=== PATIENT | male | born 1965 | race Caucasian/White ===

== ENCOUNTER 2017-02-20 09:10 | Emergency (ER) | payer BC ==
[2017-02-20 09:19] VITALS: BP 130/84; BMI 34.2
[2017-02-20] MEDS ORDERED: HYDROGEN PEROXIDE 3% ONE (10:07)
[2017-02-20] MEDS ORDERED: ADACEL TDaP IM ONE ×2 (10:13→10:21)
--- NOTE | 2017-02-20 10:37 | DR.GENAD ---
HPI - PCP Primary Care Physician: HUI MOSES - HPI Comment HPI Comment: HISTORY BELOW. - Complaint/Symptoms Chief Complaint Doctors Comments: PUNCTURE WOUND AND FB/ METAL IN LEFT LEG. HAPPEN TODAY BEFORE COMING. TD UTD. Chief Complaint:: PT C/O WORKING AND HAVING METAL FLY OUT AND HIT HIS LEFT LEG AND PT WANTS TO MAKE SURE THERE IS NO METAL IN HIS LEG.. - Nurses notes reviewed Nurses Notes Review: Yes - Source History Provided: Patient - Mode of Arrival Mode of Arrival: Ambulatory - Timing Onset of Chief Complaint: 02/20/17 Came on: Suddenly - Duration Duration: Constant Duration: Hours - Severity Severity: Moderate PMH - PMH Past Medical History: Yes Past Medical History: Hypertension Past Medical History Comment: INCREASED CHOLESTEROL .. Past Surgical History: No - Family History History of Family Medical Conditions: Yes Family Medical History: Cancer Family Medical History Comment: HEART DISEASE .. - Social History Does patient currently use any type of tobacco product: Yes Have you used tobacco products in the last 12 months: Yes Type of Tobacco Use: Cigarettes How many years tobacco product used: 33 Does any household member use tobacco: No Alcohol Use: Occasionally Do you use any recreational Drugs:: No Lives With: Alone Lives Where: Home - infectious screening In the last 2 months have you had wt loss of >10#?: NO Have you had fever, night sweats or hemotysis?: No Have you traveled outside the country in the last 6 months?: No Isolation: Standard ROS - Review of Systems Constitutional: No Symptoms Reported Eyes: No Symptoms Reported ENTM: No Symptoms Reported Respiratoy: No Symptoms Reported Cardiovascular: No Symptoms Reported Gastrointestinal/Abdominal: No Symptoms Reported Genitourinary: No Symptoms Reported Neurological: No Symptoms Reported Musculoskeletal: Muscle Pain Integumentary: Wound (PUNCTURE WOUND LT LEG.), Other (FB/ METAL IN LT LEG.) Hematologic/Lymphatic: No Symptoms Reported Endocrine: No Symptoms Reported All Other Systems: Reviewed and Negative PE - Vital Signs Vitals: Temperature 98.8 F Pulse Rate 95 Respiratory Rate 18 Blood Pressure 130/84 O2 Sat by Pulse Oximetry 100 - General Limitations: No Limitations General Appearance: Alert - Head Head Exam: Normal Inspection - Eyes Eye exam: Normal Appearance - ENT ENT Exam: Normal External Ear Exam External Ear Exam: Normal External Inspection - Neck Neck Exam: Trachea Midline - Chest Chest Inspection: Symmetric Chest Wall Rise - Respiratory Respiratory Exam: Normal Lung Sounds Bilat Respiratory Exam: Bilateral Clear to Auscultation - Cardiovascular Cardiovascular Exam: Regular Rate, Normal Rhythm, Normal Heart Sounds - Abdominal Exam Abdominal Exam: Normal Inspection - Extremities Extremities Exam: Tenderness (LT LEG WITH PUNCTURE WOUND AND FB.) - Back Back Exam: Normal Inspection - Neurologic Neurological Exam: Alert, Oriented X3 - Psychiatric Psychiatric Exam: Normal Affect, Normal Mood - Skin Skin Exam: Erythema (PUNCTURE WOUND.) MDM - Differential Diagnosis Differential Diagnosis: PUNCTURE WOUND LT LEG, FB LEFT LEG. Course - Treatment Treatment: SEE ORDERS. ATTEMPT TO REMOVE FB IN ED BY DR WAS NOT SUCCESSFUL. ORTHO/DR. GARDNER ATTEMTED TO REMOVE FB UNDER FLUEROSCPY WITHOUT SUCCESS. SKIN CLOSE AND PATIENT REFER TO PCP FOR ORTHO REFERER. - Education/Counseling Education/Counseling: Patient, Education Educated On: Treatment, Diagnosis, Needs for Follow Up ROR - XRAY XRAY Interpreted by: Radiologist XRAY Findings: REPORT DISCUSS WITH PATIENT. Procedures - Laceration/Wound Repair Left Leg Wound Length (cm): 2 (SURGICAL INCISSURE DONE IN ED FOR FB EXPLORATION.) Wound's Depth, Shape: Linear Wound Explored: clean Irrigated w/ Saline (ccs): 50 Betadine Prep?: Yes Anesthesia: 1% Lidocaine Volume Anesthetic (ccs): 5 Wound Debrided: minimal Wound Repaired With: sutures Suture Size/Type: 4:0, Ethilion Number of Sutures: 7 Progress: 2CM SURGICAL SURE INTRODUCE EXTENSION OF PUNCTURE WOUND. FB WAS NOT NOT RECOVERED. DR. RIVERA, ORTHO DR SEARCH UNDER FLUERO WITHOUT SUCCESS. WOUND CLOSE WITH 4-0 ETHILON 7 STICHES. - Diagnosis Discharge Problem: Laceration of left leg, Foreign body of left lower leg - Discharge Plan Disposition: 01 HOME, SELF-CARE Condition: Stable Prescriptions: Cephalexin [KEFLEX CAP 500 MG *] 500 mg PO TID #21 cap Ibuprofen [MOTRIN TAB 800 MG *] 800 mg PO Q8H PRN #20 tab PRN Reason: Pain/Inflammation Tramadol HCl 50 mg PO TID #15 tablet - Follow ups/Referrals Follow ups/Referrals: NFD,None [Primary Care Provider] - 1 day - Instructions Instructions: Puncture Wound, [id number], Laceration Care, Adult, Easy-to- Read Additional Instructions: RETURN TO ED IF WORSE. YOU ALSO HAVE FOREIGN BODY IN RT LEG.
[2017-02-20] MEDS ORDERED: XYLOCAINE 1 % (PLAIN) ONE (10:47)
--- NOTE | 2017-02-20 12:45 | RAD ---
HISTORY: Possible metal in leg and recheck for foreign body. Study: Four views each of the left tibia/fibula dated different times on February 20, 2017. Comparison: None. Findings: Patient is status post ORIF of remote distal tibia and fibular fractures with plate and screw fixatio n. The visualized hardware appears intact. Degenerative and posttraumatic changes about the ankle. No acute fracture or dislocation. There is a 9 mm radiopaque density within the soft tissues adjacent t o the posterior medial left distal tibia. Remaining soft tissues are otherwise unremarkable. IMPRESSION: 1. 9 mm radiopaque foreign body within the soft tissues as above appears unchanged. 2. No acute osseous abnormality. Reported By:
[2017-02-20] MEDS ORDERED: ANCEF VIAL 1 GM IM ONE (14:12)
[2017-02-20] MEDS ORDERED: ANCEF VIAL 1 GM ONE (14:13)
[2017-02-20] MEDS ORDERED: BACITRACIN ZINC ONE (14:21)
== END 2017-02-20 15:16 | disposition home or self-care (01) ==
LOC: ER 09:22
PROC: 0YQJ0ZZ Repair Left Lower Leg, Open Approach (ICD-10-PCS; principal; 2017-02-20)
DX: S81.812A Laceration without foreign body, left lower leg, initial encounter (principal); W45.8XXA Other foreign body or object entering through skin, initial encounter; Y92.69 Other specified industrial and construction area as the place of occurrence of the external cause
CPT/HCPCS: 12001; 73590; 90471; 96372; 99282; J0690; J2001

== ENCOUNTER 2023-12-18 12:47 | Inpatient (IN) ==
--- NOTE | 2023-12-18 14:01 | DR.ABDMALE ---
HPI Time seen Time Seen by Provider: 12/18/23 13:50 PCP Primary Care Physician: Esvin Lockett Complaint Chief Complaint Doctors Comments: 58-year-old male presents for evaluation. Patient developed abdominal pain yesterday afternoon. Pain started after the patient got off his tractor, states he was on the "too long", in the heat. Pain started above the umbilical region, has been steady, is now across the entire abdomen. Pain worse with movement, palpation and bending. Nothing makes it better. Denies fever or chills. Has had decreased appetite today. Denies nausea, vomiting, diarrhea. Last moved his bowels yesterday. Urine is dark, but no dysuria. Denies lightheadedness or dizziness. Chief Complaint:: Pt states that he has been having abd pain since yesterday right above his belly button and it keeps getting worse. Pt denies n/v/d. Last bm yesterday morning and states that it was normal Reviewed Nurses Notes Review: Yes Source History provided by:: Patient Mode of arrival Mode of Arrival: Ambulatory Timing Onset of Chief Complaint: 12/17/23 PMH PMH Past Medical History: Yes Past Medical History: Dyslipidemia and Hypertension Past Surgical History: Yes Surgical History: Ortho Surgery Past Surgical History Comment: aortic valve replacement in 2020 Family History History of Family Medical Conditions: Yes Family Medical History: Diabetes Mellitus, Cancer, Coronary Artery Disease, Heart Failure and Hypertension Social History Does patient currently use any type of tobacco product: Yes Have you used tobacco products in the last 12 months: Yes Type of Tobacco Use: Cigarettes Does any household member use tobacco: No Alcohol Use: Occasionally Do you use any recreational Drugs:: No Lives With: Family Lives Where: Home Infectious screening Have you traveled outside the country in the last 6 months?: No Isolation: Standard ROS Review of Systems Constitutional: No Symptoms Reported Eyes: No Symptoms Reported ENTM: No Symptoms Reported Respiratoy: No Symptoms Reported Cardiovascular: No Symptoms Reported Gastrointestinal/Abdominal: See HPI Genitourinary: No Symptoms Reported Neurological: No Symptoms Reported Musculoskeletal: No Symptoms Reported Integumentary: No Symptoms Reported Hematologic/Lymphatic: No Symptoms Reported All Other Systems: Reviewed and Negative PE Vital Signs Vital Signs: Temp Pulse Pulse Resp BP BP Pulse Ox 12/18/23 16:59 18 12/18/23 15:47 81 18 113/60 96 12/18/23 14:18 21 12/18/23 13:01 98.1 F 95 H 21 117/65 95 O2 Del Method 12/18/23 16:59 12/18/23 15:47 Room Air 12/18/23 14:18 12/18/23 13:01 Room Air General General Appearance: Alert and In No Apparent Distress Eyes Eye exam: PERRL and EOMI ENT ENT Exam: Mucous Membranes Moist Neck Neck Exam: Normal Inspection Chest Chest Inspection: Normal Inspection Respiratory Respiratory Exam: Normal Lung Sounds Bilat; negative Accessory Muscle Use or Respiratory Distress Cardiovascular Cardiovascular Exam: Regular Rate, Normal Rhythm and Normal Heart Sounds Abdominal Exam Abdominal Exam: Normal Bowel Sounds, Soft and Tenderness (To all quadrants, with guarding, no rebound. + pain with Valsalva) Extremeties Extremities Exam: Normal Inspection; negative Edema Neurologic Neurological Exam: Alert, Oriented X3 and CN II-XII Intact; negative Motor Sensory Deficit Skin Skin Exam: Warm and Dry COURSE Treatment Treatment: 58-year male with relatively sudden onset of abdominal pain yesterday after getting off his tractor. States the pain is located periumbilical region, but is diffusely tender to mild palpation of all quadrants. Workup initiated. Patient given IV fluids. White count markedly elevated 21,000. Chemistries are acceptable, including creatinine kinase.. Urinalysis low concentrated without infection.. CT of the abdomen pelvis with IV contrast performed, patient has large collection of haziness in the appendix region. 1626 -positive for appendicitis per radiology. Call put out to general surgery, Dr. La, coming to take to the OR. Will give additional fluids, IV Zosyn. Pre op EKG, CXR look good. ROR Labs Reviewed Laboratory Results Reviewed?: Yes 12/18/23 14:12 12/18/23 14:12 Laboratory: WBC 21.1 X10^3/uL (3.6-10.0) H 12/18/23 14:12 RBC 5.55 X10^6/uL (4.7-6.0) 12/18/23 14:12 Hgb 16.5 g/dL (13.5-18.0) 12/18/23 14:12 Hct 48.2 % (42.0-54.0) 12/18/23 14:12 MCV 86.8 fL (80.0-100.0) 12/18/23 14:12 MCH 29.6 pg (27.0-34.0) 12/18/23 14:12 MCHC 34.2 g/dL (33.0-35.0) 12/18/23 14:12 RDW 14.8 % (11.6-16.5) 12/18/23 14:12 Plt Count 197 X10^3/uL (150.0-450.0) 12/18/23 14:12 Plt Count Comment Adequate (ADEQUATE) 12/18/23 14:12 MPV 7.4 fL (7.4-11.0) 12/18/23 14:12 Neut % (Auto) 85.0 % (42.0-75.0) H 12/18/23 14:12 Lymph % (Auto) 4.8 % (21.0-51.0) L 12/18/23 14:12 [place] % (Auto) 6.4 % (0.0-13.0) 12/18/23 14:12 Eos % (Auto) 0.2 % (0.9-2.9) L 12/18/23 14:12 Baso % (Auto) 3.6 % (0.2-1.0) H 12/18/23 14:12 Neut # (Auto) 17.9 x10^3/uL (2.2-4.8) H 12/18/23 14:12 Lymph # (Auto) 1.0 X10^3/uL (1.3-2.9) L 12/18/23 14:12 [place] # (Auto) 1.4 x10^3/uL (0.3-0.8) H 12/18/23 14:12 Eos # (Auto) 0.1 x10^3/uL (0.0-0.2) 12/18/23 14:12 Baso # (Auto) 0.8 X10^3/uL (0.0-0.1) H 12/18/23 14:12 Absolute Nucleated RBC 0.1 /100WBC 12/18/23 14:12 Total Counted 100 12/18/23 14:12 Neutrophils % (Manual) 77 % (39-76) H 12/18/23 14:12 Band Neutrophils % 3 % (0-10) 12/18/23 14:12 Lymphocytes % (Manual) 14 % (13-43) 12/18/23 14:12 Monocytes % (Manual) 6 % (4-9) 12/18/23 14:12 Plt Morphology Comment Normal (NORMAL) 12/18/23 14:12 RBC Morphology Normal (NORMAL) 12/18/23 14:12 Sodium 135 mmol/L (136-145) L 12/18/23 14:12 Corrected Sodium 136 mmol/L (136-145) 12/18/23 14:12 Potassium 3.2 mmol/L (3.5-5.1) L 12/18/23 14:12 Chloride 97 mmol/L (98-107) L 12/18/23 14:12 Carbon Dioxide 26.8 mmol/L (21-32) 12/18/23 14:12 BUN 14 mg/dL (7-18) 12/18/23 14:12 Creatinine 1.24 mg/dL (0.70-1.30) 12/18/23 14:12 Est GFR (MDRD) Af Amer > 60 (>60) 12/18/23 14:12 Est GFR (MDRD) Non-Af > 60 (>60) 12/18/23 14:12 Glucose 131 mg/dL (65-99) H 12/18/23 14:12 Calcium 8.8 mg/dL (8.5-10.1) 12/18/23 14:12 Corrected Calcium TNP 12/18/23 14:12 Total Bilirubin 1.50 mg/dL (0.2-1.0) H 12/18/23 14:12 AST 24 Units/L (15-37) 12/18/23 14:12 ALT 22 Units/L (12-78) 12/18/23 14:12 Alkaline Phosphatase 64 Units/L (46-116) 12/18/23 14:12 Creatine Kinase 116 Units/L (39-308) 12/18/23 14:12 Total Protein 7.3 g/dL (6.4-8.2) 12/18/23 14:12 Albumin 3.5 g/dL (3.4-5.0) 12/18/23 14:12 Globulin 3.8 g/dL (2.5-4.5) 12/18/23 14:12 Albumin/Globulin Ratio 0.9 Ratio (1.1-2.1) L 12/18/23 14:12 Lipase 30 Units/L (16-77) 12/18/23 14:12 Specimen Type Clean catch urine 12/18/23 14:16 Urine Color Dark yellow (YELLOW) 12/18/23 14:16 Urine Appearance Clear (CLEAR) 12/18/23 14:16 Urine pH 6.5 (5.0 - 8.0) 12/18/23 14:16 Ur Specific [place] 1.020 (1.000-1.030) 12/18/23 14:16 Urine Protein 2+ (NEGATIVE) 12/18/23 14:16 Urine Glucose (UA) Negative (NEGATIVE) 12/18/23 14:16 Urine Ketones 1+ (NEGATIVE) 12/18/23 14:16 Urine Blood Negative (NEGATIVE) 12/18/23 14:16 Urine Nitrite Negative (NEGATIVE) 12/18/23 14:16 Urine Bilirubin 1+ (NEGATIVE) 12/18/23 14:16 Urine Urobilinogen 2+ (NORMAL) 12/18/23 14:16 Ur Leukocyte Esterase 1+ (NEGATIVE) 12/18/23 14:16 Urine RBC None seen /HPF (0-3) 12/18/23 14:16 Urine WBC 3-5 /HPF (0-5) 12/18/23 14:16 Ur Squamous Epith Cells Few /HPF (NEGATIVE) 12/18/23 14:16 Urine Bacteria Trace /HPF (NEGATIVE) 12/18/23 14:16 Hyaline Casts Few /LPF (NEGATIVE) 12/18/23 14:16 Urine Mucus Many /HPF (NEGATIVE) 12/18/23 14:16 Ur Culture Indicated? No/not indicated 12/18/23 14:16 White Count elevated to 21,000 XRAY XRAY Interpreted by: Both X-ray Results: EXAM: CT ABDOMEN AND PELVIS WITH INTRAVENOUS CONTRAST HISTORY: Abdominal pain. TECHNIQUE: Spiral axial CT images are obtained through the abdomen and pelvis without the administration of oral contrast and with the administration of intravenous contrast. Additional coronal and sagittal reformatted images are reconstructed. DOSIMETRY: Total DLP 653.52 mGycm; CTDI 11.92 mGy COMPARISON: None available. FINDINGS: GASTROINTESTINAL TRACT: There is no evidence for bowel herniation, bowel obstruction, colitis or diverticulitis. Evidence for acute appendicitis, marked by a dilated (1.4 cm diameter), thickwalled, fluid-filled appendix with an approximately 6.4 mm intraluminal appendicoliths at the base of the appendix and extensive periappendiceal streaky inflammatory change. Axial image 54-64. No drainable fluid collection, free air, or abscess formation seen. GENITOURINARY SYSTEM: There are 2 small adjacent left lower pole renal cysts; larger measures 2.3 cm. The kidneys are otherwise unremarkable. There is no ureteral calculus or stigmata of obstructive uropathy. The urinary bladder, seminal vesicles, prostate gland appear grossly unremarkable for a non-dedicated exam. CT ABDOMEN: The liver, spleen, pancreas, adrenal glands, gallbladder, aorta, and inferior vena cava are within normal limits for a CT scan. There is no intra- abdominal or retroperitoneal lymphadenopathy, free fluid, or free air seen. No abdominal herniation is noted. CT PELVIS: No pelvic sidewall or inguinal lymphadenopathy is seen. No inguinal herniation is noted. No free fluid or free air is seen. BONES AND JOINTS: The visualized bony structures are within normal limits. LUNG BASES: The lung bases are clear. There is severe coronary atherosclerosis (LAD). A transcatheter aortic valve replacement prosthesis is noted in situ. IMPRESSION: 1. Acute appendicitis, marked by a dilated (1.4 cm diameter), thickwalled, fluid-filled appendix with an approximately 6.4 mm intraluminal appendicoliths at the base of the appendix and extensive periappendiceal streaky inflammatory change. Axial image 54-64. 2. No drainable fluid collection, free air, or abscess formation seen. 3. No evidence for bowel herniation/obstruction, colitis or diverticulitis seen. 4. No evidence for pyelonephritis, renal stone disease or obstructive uropathy. 5. No free fluid, free air, mass lesions, or lymphadenopathy seen. 6. Severe coronary atherosclerosis (LAD). 7. Transcatheter aortic valve replacement prosthesis is noted in situ. THIS IS AN ELECTRONICALLY VERIFIED FINAL REPORT 12/18/2023 4:13 PM - Electronically signed by Wu Roque MD EKG Rate: 85 [place]: Normal Rhythm: NSR ST: Nonsp Opioid Opioid Risk Tool Age (Rolando box if 16-45): No History of Preadolescent Sexual Abuse: No Total: 0 Total Score Risk Category: Low Risk Copyright: Ferraro REJI predicting aberrant behaviors Discharge Plan Diagnosis Discharge Problem: Acute appendicitis Discharge Plan Patient Disposition: ADMITTED INPATIENT Condition: Stable Prescriptions: No Action cyclobenzaprine 10 mg tablet 10 mg PO QPM meloxicam 15 mg tablet 15 mg PO QDAY PRN (Reason: arthritis) potassium chloride 10 mEq tablet extended release 10 meq PO QDAY chlorthalidone 25 mg tablet 25 mg PO QAM rosuvastatin 40 mg tablet 40 mg PO QDAY metoprolol tartrate 25 mg tablet 25 mg PO BID Wegovy 0.5 mg/0.5 mL pen injector 0.5 mg SUBCUT QWEEK azithromycin [Zithromax] 250 mg tablet See Rx Instructions .ROUTE .COMPLEX Qty: 6 0RF Rx Instructions: For 250 mg dose pack: take 500 mg today (day 1), then 250 mg for 4 days (days 2-5) prednisone 20 mg tablet 20 mg PO QDAY Qty: 5 0RF Health Concerns: Post Hospitalization: new medications and changes needed to prevent readmission or further decline. Pt educated and given instructions on all concerns. Plan of Treatment: Continue with present treatment and follow up plan. Pt is to keep follow up appointment as instructed and take medications as ordered. Follow ups/Referrals Follow ups/Referrals: HUI LOCKETT [Primary Care Provider] - 3 days
[2023-12-18] MEDS: TORADOL 30 MG VIAL IVP ONE (14:18)
[2023-12-18] MEDS: NS 1,000 ML IV 1,000 ML IV ONE (14:18)
[2023-12-18 14:23] LABS: BILIRUBIN,URINE 1+ (NEGATIVE); BLOOD/HEMOGLOBIN,URINE NEGATIVE (NEGATIVE); GLUCOSE, URINE NEGATIVE (NEGATIVE); KETONES,URINE 1+ (NEGATIVE); LEUKOCYTE ESTERASE ,URINE 1+ (NEGATIVE); NITRITES,URINE NEGATIVE (NEGATIVE); PH,URINE 6.5 (5.0 - 8.0); PROTEIN,URINE 2+ (NEGATIVE); UROBILINOGEN,URINE 2+ (NORMAL)
[2023-12-18 14:37] LABS: ALANINE AMINOTRANSFERASE 22 Units/L (12-78); ALBUMIN 3.5 g/dL (3.4-5.0); ALKALINE PHOSPHATASE 64 Units/L (46-116); ASPARTATE AMINO TRANSFERASE 24 Units/L (15-37); BLOOD UREA NITROGEN 14 mg/dL (7-18); CALCIUM 8.8 mg/dL (8.5-10.1); CARBON DIOXIDE 26.8 mmol/L (21-32); CHLORIDE 97 mmol/L (98-107); COR NA(FOR HYPERGLY) 136 mmol/L (136-145); CREATINE KINASE 116 Units/L (39-308); CREATININE 1.24 mg/dL (0.70-1.30); GLUCOSE 131 mg/dL (65-99); LIPASE 30 Units/L (16-77); POTASSIUM 3.2 mmol/L (3.5-5.1); SODIUM 135 mmol/L (136-145); TOTAL PROTEIN 7.3 g/dL (6.4-8.2); eGFR NON BLACK RACES > 60 (>60)
[2023-12-18 14:43] LABS: BASOPHILS # (AUTO) 0.8 X10^3/uL (0.0-0.1); BASOPHILS % (AUTO) 3.6 % (0.2-1.0); EOSINOPHILS # (AUTO) 0.1 x10^3/uL (0.0-0.2); EOSINOPHILS % (AUTO) 0.2 % (0.9-2.9); HEMATOCRIT 48.2 % (42.0-54.0); HEMOGLOBIN 16.5 g/dL (13.5-18.0); LYMPHOCYTES % (AUTO) 4.8 % (21.0-51.0); MEAN CORPUSCULAR HEMOGLOBIN 29.6 pg (27.0-34.0); MEAN CORPUSCULAR HGB CONC 34.2 g/dL (33.0-35.0); MEAN CORPUSCULAR VOLUME 86.8 fL (80.0-100.0); MEAN PLATELET VOLUME 7.4 fL (7.4-11.0); MONOCYTES # (AUTO) 1.4 x10^3/uL (0.3-0.8); MONOCYTES % (AUTO) 6.4 % (0.0-13.0); NEUTROPHILS # (AUTO) 17.9 x10^3/uL (2.2-4.8); PLATELET COUNT 197 X10^3/uL (150.0-450.0); RED BLOOD COUNT 5.55 X10^6/uL (4.7-6.0); RED CELL DISTRIBUTION WIDTH 14.8 % (11.6-16.5); WHITE BLOOD COUNT 21.1 X10^3/uL (3.6-10.0)
[2023-12-18 14:50] LABS: APPEARANCE,URINE CLEAR (CLEAR); COLOR,URINE DARK YELLOW (YELLOW)
[2023-12-18 14:57] LABS: RBC,URINE NONE SEEN /HPF (0-3)
[2023-12-18 14:58] LABS: BACTERIA,URINE TRACE /HPF (NEGATIVE); HYALINE CASTS, URINE FEW /LPF (NEGATIVE); SQUAMOUS EPITHELIAL CELL,UR FEW /HPF (NEGATIVE)
[2023-12-18 15:00] LABS: BAND NEUTROPHILS % 3 % (0-10); PLATELET MORPHOLOGY COMMENT NORMAL (NORMAL)
--- NOTE | 2023-12-18 16:17 | CT ---
EXAM: CT ABDOMEN AND PELVIS WITH INTRAVENOUS CONTRAST HISTORY: Abdominal pain. TECHNIQUE: Spiral axial CT images are obtained through the abdomen and pelvis without the administrat ion of oral contrast and with the administration of intravenous contrast. Additional coronal and sagi ttal reformatted images are reconstructed. DOSIMETRY: Total DLP 653.52 mGycm; CTDI 11.92 mGy COMPARISON: None available. FINDINGS: GASTROINTESTINAL TRACT: There is no evidence for bowel herniation, bowel obstruction, colitis or dive rticulitis. Evidence for acute appendicitis, marked by a dilated (1.4 cm diameter), thickwalled, flu id-filled appendix with an approximately 6.4 mm intraluminal appendicoliths at the base of the append ix and extensive periappendiceal streaky inflammatory change. Axial image 54-64. No drainable fluid collection, free air, or abscess formation seen. GENITOURINARY SYSTEM: There are 2 small adjacent left lower pole renal cysts; larger measures 2.3 cm. The kidneys are otherwise unremarkable. There is no ureteral calculus or stigmata of obstructive ur opathy. The urinary bladder, seminal vesicles, prostate gland appear grossly unremarkable for a non- dedicated exam. CT ABDOMEN: The liver, spleen, pancreas, adrenal glands, gallbladder, aorta, and inferior vena cava a re within normal limits for a CT scan. There is no intra-abdominal or retroperitoneal lymphadenopath y, free fluid, or free air seen. No abdominal herniation is noted. CT PELVIS: No pelvic sidewall or inguinal lymphadenopathy is seen. No inguinal herniation is noted. No free fluid or free air is seen. BONES AND JOINTS: The visualized bony structures are within normal limits. LUNG BASES: The lung bases are clear. There is severe coronary atherosclerosis (LAD). A transcathet er aortic valve replacement prosthesis is noted in situ. IMPRESSION: 1. Acute appendicitis, marked by a dilated (1.4 cm diameter), thickwalled, fluid-filled appendix wit h an approximately 6.4 mm intraluminal appendicoliths at the base of the appendix and extensive peria ppendiceal streaky inflammatory change. Axial image 54-64. 2. No drainable fluid collection, free air, or abscess formation seen. 3. No evidence for bowel herniation/obstruction, colitis or diverticulitis seen. 4. No evidence for pyelonephritis, renal stone disease or obstructive uropathy. 5. No free fluid, free air, mass lesions, or lymphadenopathy seen. 6. Severe coronary atherosclerosis (LAD). 7. Transcatheter aortic valve replacement prosthesis is noted in situ. THIS IS AN ELECTRONICALLY VERIFIED FINAL REPORT 12/18/2023 4:13 PM - Electronically signed by Wu Roque MD
--- NOTE | 2023-12-18 16:28 | EKG ---
Test Reason : preop Blood Pressure : */* mmHG Vent. Rate : 85 BPM Atrial Rate : 85 BPM P-R Int : 198 ms QRS Dur : 92 ms QT Int : 414 ms P-R-T Axes : 6 36 198 degrees QTc Int : 492 ms Normal sinus rhythm T wave abnormality, consider inferolateral ischemia Prolonged QT Abnormal ECG No previous ECGs available Confirmed by Alberto Rod MD ([id number]) on 12/18/2023 5:30:57 PM Referred By: Confirmed By: Alberto Rod MD
[2023-12-18] MEDS: ZOSYN VIAL 3.375 GRAMS 3.375 G in NS 100 ML IV 100 ML IV SCH ×2 (16:49→20:50)
[2023-12-18] MEDS: NS 250 ML IV 25 ML IV PRN (16:50)
--- NOTE | 2023-12-18 16:56 | RAD ---
EXAM: CHEST, 1 VIEW HISTORY: pre op; COMPARISON: None. TECHNIQUE: Single frontal view of the chest FINDINGS: Heart size and mediastinal contours are normal. Lungs are clear as are the pleural spaces. Mild inte rstitial scarring is observed bilaterally. The lungs hypoinflated overall. No free air or pneumotho rax. No acute bony abnormality. Postsurgical changes include TAVR. Additionally there is height los s of the midthoracic spine estimated level of T7 with post vertebroplasty changes. Superior endplate Schmorl's node defects are also suspected at T10 and T11, resulting in mild height loss along the jones perior endplates.. IMPRESSION: No acute radiographic abnormalities of the chest. Additional chronic findings are detailed above. THIS IS AN ELECTRONICALLY VERIFIED FINAL REPORT 12/18/2023 4:52 PM - Electronically signed by Blayne Vo MD
[2023-12-18] MEDS: LR 1,000 ML IV 1,000 ML IV ONE (17:20)
[2023-12-18] MEDS: OFIRMEV IV 1000 MG VIAL 1,000 MG/100 ML VIAL IV ONE (17:36)
[2023-12-18] MEDS: FENTANYL VIAL INJ 100 mcg ONE (17:36)
[2023-12-18] MEDS: ZOFRAN INJ 4 MG VIAL ONE (17:36)
[2023-12-18] MEDS: SUPRANE ONE (17:36)
[2023-12-18] MEDS ORDERED: SUPRANE ONE (17:36)
[2023-12-18] MEDS: BRIDION ONE (17:36)
[2023-12-18] MEDS: PEPCID 20 MG VIAL ONE (17:36)
[2023-12-18] MEDS: VERSED ONE (17:36)
[2023-12-18] MEDS: ZEMURON 100 MG VIAL ONE (17:36)
[2023-12-18] MEDS: DIPRIVAN VIAL 20 ML ONE (17:36)
[2023-12-18] MEDS ORDERED: XYLOCAINE 2 % (PLAIN) ONE (17:36)
[2023-12-18] MEDS: TORADOL 30 MG VIAL ONE (17:36)
[2023-12-18] MEDS ORDERED: BENADRYL INJ 50 MG VIAL IVP PRN (18:20)
[2023-12-18] MEDS ORDERED: REGLAN INJ 10 MG VIAL IVP PRN (18:20)
[2023-12-18] MEDS ORDERED: ZOFRAN INJ 4 MG VIAL IVP PRN (18:20)
[2023-12-18] MEDS ORDERED: DILAUDID INJ IVP PRN (18:20)
[2023-12-18] MEDS ORDERED: BARHEMSYS INJ IVP PRN (18:20)
[2023-12-18] MEDS: BACTROBAN TOPICAL OINT ONE (18:54)
[2023-12-18] MEDS: BETADINE SOLN ONE (19:05)
[2023-12-18] MEDS: LEVAQUIN PREMIX IV 750 MG 750 MG/150 ML BAG IV ONE (19:23)
[2023-12-18] MEDS: DUONEB 0.5 MG/3 MG (3 mL) NEB ONE (19:50)
[2023-12-18 20:30] VITALS: BMI 34.8
[2023-12-18] MEDS: D5 1/2 NS 1,000 ML 1,000 ML IV SCH (20:50)
[2023-12-18] MEDS: PROTONIX INJ 40 MG VIAL IVP SCH (20:50)
[2023-12-18] MEDS: LR 1,000 ML IV 1,000 ML IV SCH (21:44)
[2023-12-18] MEDS: DILAUDID INJ IVP PRN (22:17)
[2023-12-18] MEDS: FLAGYL IV PREMIX 500 MG BAG 500 MG/100 ML BAG IV SCH (22:17)
[2023-12-19] MEDS: PERCOCET TAB 5/325 MG PO PRN (04:52)
[2023-12-19 05:43] LABS: BASOPHILS % (AUTO) 0.2 % (0.2-1.0); EOSINOPHILS # (AUTO) 0.1 x10^3/uL (0.0-0.2); EOSINOPHILS % (AUTO) 0.3 % (0.9-2.9); HEMATOCRIT 43.3 % (42.0-54.0); HEMOGLOBIN 14.7 g/dL (13.5-18.0); LYMPHOCYTES % (AUTO) 5.4 % (21.0-51.0); MEAN CORPUSCULAR HEMOGLOBIN 29.7 pg (27.0-34.0); MEAN CORPUSCULAR VOLUME 87.5 fL (80.0-100.0); MEAN PLATELET VOLUME 7.1 fL (7.4-11.0); MONOCYTES # (AUTO) 0.8 x10^3/uL (0.3-0.8); MONOCYTES % (AUTO) 4.2 % (0.0-13.0); NEUTROPHILS # (AUTO) 16.8 x10^3/uL (2.2-4.8); NEUTROPHILS % (AUTO) 89.9 % (42.0-75.0); PLATELET COUNT 158 X10^3/uL (150.0-450.0); RED BLOOD COUNT 4.95 X10^6/uL (4.7-6.0); RED CELL DISTRIBUTION WIDTH 14.5 % (11.6-16.5); WHITE BLOOD COUNT 18.7 X10^3/uL (3.6-10.0)
[2023-12-19 05:55] LABS: ALANINE AMINOTRANSFERASE 16 Units/L (12-78); ALBUMIN 2.7 g/dL (3.4-5.0); ALKALINE PHOSPHATASE 54 Units/L (46-116); ASPARTATE AMINO TRANSFERASE 20 Units/L (15-37); BLOOD UREA NITROGEN 13 mg/dL (7-18); CALCIUM 7.9 mg/dL (8.5-10.1); CARBON DIOXIDE 27.5 mmol/L (21-32); CHLORIDE 98 mmol/L (98-107); COR CA(FOR HYPOALB) 8.9 mg/dL (8.5-10.1); COR NA(FOR HYPERGLY) 136 mmol/L (136-145); CREATININE 1.29 mg/dL (0.70-1.30); GLUCOSE 124 mg/dL (65-99); MAGNESIUM 1.7 mg/dL (2.0-2.9); POTASSIUM 3.2 mmol/L (3.5-5.1); SODIUM 135 mmol/L (136-145); eGFR NON BLACK RACES > 60 (>60)
[2023-12-19] MEDS ORDERED: CONSULT PHARMACY - POTASSIUM & MAGNESIUM XX SCH (07:00)
[2023-12-19] MEDS: K-DUR TAB 20 MEQ PO SCH (08:41)
[2023-12-19] MEDS: MAG-OX TAB PO SCH (08:42)
[2023-12-19] MEDS: LEVAQUIN PREMIX IV 750 MG 750 MG/150 ML BAG IV SCH (08:43)
--- NOTE | 2023-12-19 08:48 | DR.PROGNOT ---
HOSPITAL PROGRESS NOTE Progress Note for Day of: Progress Note Date: 12/19/23 Chief Complaint Chief Complaint: Status post laparoscopic appendectomy day 1. For acute gangrenous and ruptured appendicitis. Complaining of lower abdominal pain, no nausea or vomiting. Good urine output. White count 18.7 with shift to the left. Stable vital signs and using the incentive spirometer. Abdomen is soft with hypoactive bowel sounds Past Medical Family Social History Allergies: Allergies hydrocodone Allergy (Verified 12/08/23 18:38) Review Of Systems ROS: No change since H&P Vital Signs Vital Signs: Vital Signs Temperature 99.8 F Temperature 101.5 F Temperature 97.9 F Pulse Rate [Left] 101 Pulse Rate [Left] 94 Respiratory Rate 20 Respiratory Rate 20 Respiratory Rate 20 Respiratory Rate 21 Respiratory Rate 21 Blood Pressure [Left Arm] 107/59 Blood Pressure [Left Arm] 125/59 O2 Sat by Pulse Oximetry 93 O2 Sat by Pulse Oximetry 95 Physical Exam Oriented: Normal Eyes: Normal Ear: Normal Nose: Normal Throat: Normal Respiratory: Normal Cardiovascular: Normal GI:Auscultation: Decreased GI:Palpation: Normal GI: Tenderness: Moderate Mood Description: Calm Speech Pattern: Clear and Appropriate Laboratory and Diagnostics 12/19/23 05:32 12/19/23 05:32 Labs: Laboratory WBC 18.7 X10^3/uL (3.6-10.0) H 12/19/23 05:32 RBC 4.95 X10^6/uL (4.7-6.0) 12/19/23 05:32 Hgb 14.7 g/dL (13.5-18.0) 12/19/23 05:32 Hct 43.3 % (42.0-54.0) 12/19/23 05:32 MCV 87.5 fL (80.0-100.0) 12/19/23 05:32 MCH 29.7 pg (27.0-34.0) 12/19/23 05:32 MCHC 34.0 g/dL (33.0-35.0) 12/19/23 05:32 RDW 14.5 % (11.6-16.5) 12/19/23 05:32 Plt Count 158 X10^3/uL (150.0-450.0) 12/19/23 05:32 Plt Count Comment Adequate (ADEQUATE) 12/18/23 14:12 MPV 7.1 fL (7.4-11.0) L 12/19/23 05:32 Neut % (Auto) 89.9 % (42.0-75.0) H 12/19/23 05:32 Lymph % (Auto) 5.4 % (21.0-51.0) L 12/19/23 05:32 [place] % (Auto) 4.2 % (0.0-13.0) 12/19/23 05:32 Eos % (Auto) 0.3 % (0.9-2.9) L 12/19/23 05:32 Baso % (Auto) 0.2 % (0.2-1.0) 12/19/23 05:32 Neut # (Auto) 16.8 x10^3/uL (2.2-4.8) H 12/19/23 05:32 Lymph # (Auto) 1.0 X10^3/uL (1.3-2.9) L 12/19/23 05:32 [place] # (Auto) 0.8 x10^3/uL (0.3-0.8) 12/19/23 05:32 Eos # (Auto) 0.1 x10^3/uL (0.0-0.2) 12/19/23 05:32 Baso # (Auto) 0.0 X10^3/uL (0.0-0.1) 12/19/23 05:32 Absolute Nucleated RBC 0.0 /100WBC 12/19/23 05:32 Total Counted 100 12/18/23 14:12 Neutrophils % (Manual) 77 % (39-76) H 12/18/23 14:12 Band Neutrophils % 3 % (0-10) 12/18/23 14:12 Lymphocytes % (Manual) 14 % (13-43) 12/18/23 14:12 Monocytes % (Manual) 6 % (4-9) 12/18/23 14:12 Plt Morphology Comment Normal (NORMAL) 12/18/23 14:12 RBC Morphology Normal (NORMAL) 12/18/23 14:12 Sodium 135 mmol/L (136-145) L 12/19/23 05:32 Corrected Sodium 136 mmol/L (136-145) 12/19/23 05:32 Potassium 3.2 mmol/L (3.5-5.1) L 12/19/23 05:32 Chloride 98 mmol/L (98-107) 12/19/23 05:32 Carbon Dioxide 27.5 mmol/L (21-32) 12/19/23 05:32 BUN 13 mg/dL (7-18) 12/19/23 05:32 Creatinine 1.29 mg/dL (0.70-1.30) 12/19/23 05:32 Est GFR (MDRD) Af Amer > 60 (>60) 12/19/23 05:32 Est GFR (MDRD) Non-Af > 60 (>60) 12/19/23 05:32 Glucose 124 mg/dL (65-99) H 12/19/23 05:32 Calcium 7.9 mg/dL (8.5-10.1) L 12/19/23 05:32 Corrected Calcium 8.9 mg/dL (8.5-10.1) 12/19/23 05:32 Magnesium 1.7 mg/dL (2.0-2.9) L 12/19/23 05:32 Total Bilirubin 1.50 mg/dL (0.2-1.0) H 12/19/23 05:32 AST 20 Units/L (15-37) 12/19/23 05:32 ALT 16 Units/L (12-78) 12/19/23 05:32 Alkaline Phosphatase 54 Units/L (46-116) 12/19/23 05:32 Creatine Kinase 116 Units/L (39-308) 12/18/23 14:12 Total Protein 6.0 g/dL (6.4-8.2) L 12/19/23 05:32 Albumin 2.7 g/dL (3.4-5.0) L 12/19/23 05:32 Globulin 3.3 g/dL (2.5-4.5) 12/19/23 05:32 Albumin/Globulin Ratio 0.8 Ratio (1.1-2.1) L 12/19/23 05:32 Lipase 30 Units/L (16-77) 12/18/23 14:12 Specimen Type Clean catch urine 12/18/23 14:16 Urine Color Dark yellow (YELLOW) 12/18/23 14:16 Urine Appearance Clear (CLEAR) 12/18/23 14:16 Urine pH 6.5 (5.0 - 8.0) 12/18/23 14:16 Ur Specific [place] 1.020 (1.000-1.030) 12/18/23 14:16 Urine Protein 2+ (NEGATIVE) 12/18/23 14:16 Urine Glucose (UA) Negative (NEGATIVE) 12/18/23 14:16 Urine Ketones 1+ (NEGATIVE) 12/18/23 14:16 Urine Blood Negative (NEGATIVE) 12/18/23 14:16 Urine Nitrite Negative (NEGATIVE) 12/18/23 14:16 Urine Bilirubin 1+ (NEGATIVE) 12/18/23 14:16 Urine Urobilinogen 2+ (NORMAL) 12/18/23 14:16 Ur Leukocyte Esterase 1+ (NEGATIVE) 12/18/23 14:16 Urine RBC None seen /HPF (0-3) 12/18/23 14:16 Urine WBC 3-5 /HPF (0-5) 12/18/23 14:16 Ur Squamous Epith Cells Few /HPF (NEGATIVE) 12/18/23 14:16 Urine Bacteria Trace /HPF (NEGATIVE) 12/18/23 14:16 Hyaline Casts Few /LPF (NEGATIVE) 12/18/23 14:16 Urine Mucus Many /HPF (NEGATIVE) 12/18/23 14:16 Ur Culture Indicated? No/not indicated 12/18/23 14:16 Assessment and Plan 1: Acute ruptured appendicitis status post laparoscopic appendectomy. Same postoperative care, IV fluid and IV antibiotics. Out of bed, incentive spirometer, full liquid diet. DVT prophylaxis. Problem Patient Problems: Patient Problems (Updated 12/18/23 @ 16:35 by Vinod Kenney) Acute appendicitis (Acute) K35.80
[2023-12-19] MEDS: LOVENOX INJ 40 MG SYR SC SCH (10:40)
[2023-12-19] MEDS: TORADOL 30 MG VIAL IVP ONE (17:35)
[2023-12-20 06:09] LABS: BASOPHILS % (AUTO) 0.3 % (0.2-1.0); EOSINOPHILS # (AUTO) 0.4 x10^3/uL (0.0-0.2); EOSINOPHILS % (AUTO) 2.6 % (0.9-2.9); HEMOGLOBIN 14.7 g/dL (13.5-18.0); LYMPHOCYTES # (AUTO) 1.1 X10^3/uL (1.3-2.9); LYMPHOCYTES % (AUTO) 7.2 % (21.0-51.0); MEAN CORPUSCULAR HEMOGLOBIN 30.2 pg (27.0-34.0); MEAN CORPUSCULAR VOLUME 86.2 fL (80.0-100.0); MEAN PLATELET VOLUME 7.2 fL (7.4-11.0); MONOCYTES # (AUTO) 0.9 x10^3/uL (0.3-0.8); MONOCYTES % (AUTO) 5.7 % (0.0-13.0); NEUTROPHILS # (AUTO) 12.5 x10^3/uL (2.2-4.8); NEUTROPHILS % (AUTO) 84.2 % (42.0-75.0); PLATELET COUNT 147 X10^3/uL (150.0-450.0); RED BLOOD COUNT 4.87 X10^6/uL (4.7-6.0); RED CELL DISTRIBUTION WIDTH 14.6 % (11.6-16.5); WHITE BLOOD COUNT 14.8 X10^3/uL (3.6-10.0)
[2023-12-20 06:17] LABS: ALANINE AMINOTRANSFERASE 15 Units/L (12-78); ALBUMIN 2.3 g/dL (3.4-5.0); ALKALINE PHOSPHATASE 51 Units/L (46-116); ASPARTATE AMINO TRANSFERASE 16 Units/L (15-37); BLOOD UREA NITROGEN 9 mg/dL (7-18); CARBON DIOXIDE 28.3 mmol/L (21-32); CHLORIDE 98 mmol/L (98-107); COR CA(FOR HYPOALB) 9.4 mg/dL (8.5-10.1); COR NA(FOR HYPERGLY) 135 mmol/L (136-145); CREATININE 1.21 mg/dL (0.70-1.30); GLUCOSE 121 mg/dL (65-99); MAGNESIUM 1.9 mg/dL (2.0-2.9); SODIUM 134 mmol/L (136-145); TOTAL PROTEIN 5.9 g/dL (6.4-8.2); eGFR NON BLACK RACES > 60 (>60)
[2023-12-20] MEDS ORDERED: CONSULT PHARMACY - POTASSIUM & MAGNESIUM XX SCH (07:00)
--- NOTE | 2023-12-20 07:37 | DR.PROGNOT ---
HOSPITAL PROGRESS NOTE Progress Note for Day of: Progress Note Date: 12/20/23 Chief Complaint Chief Complaint: Status post laparoscopic appendectomy day 2. For acute gangrenous and ruptured appendicitis. feeling better today ,Complaining of lower abdominal pain, no nausea ,no vomiting. Good urine output. moderate purulent drainage in MICHAEL. White count 14.3 with shift to the left. Stable vital signs and using the incentive spirometer. Abdomen is soft with hypoactive bowel sounds Past Medical Family Social History Allergies: Allergies hydrocodone Allergy (Verified 12/08/23 18:38) Review Of Systems ROS: No change since H&P Vital Signs Vital Signs: Vital Signs Temperature 98.9 F Temperature 98.4 F Pulse Rate [Left] 84 Pulse Rate [Left] 85 Respiratory Rate 18 Respiratory Rate 17 Respiratory Rate 20 Respiratory Rate 20 Blood Pressure [Left Arm] 131/77 Blood Pressure [Left Arm] 124/78 O2 Sat by Pulse Oximetry 94 O2 Sat by Pulse Oximetry 93 Physical Exam Oriented: Normal Eyes: Normal Ear: Normal Nose: Normal Throat: Normal Respiratory: Normal Cardiovascular: Normal GI:Auscultation: Decreased GI:Palpation: Normal GI: Tenderness: Moderate Mood Description: Calm Speech Pattern: Clear and Appropriate Laboratory and Diagnostics 12/20/23 05:54 12/20/23 05:54 Labs: Laboratory WBC 14.8 X10^3/uL (3.6-10.0) H 12/20/23 05:54 RBC 4.87 X10^6/uL (4.7-6.0) 12/20/23 05:54 Hgb 14.7 g/dL (13.5-18.0) 12/20/23 05:54 Hct 42.0 % (42.0-54.0) 12/20/23 05:54 MCV 86.2 fL (80.0-100.0) 12/20/23 05:54 MCH 30.2 pg (27.0-34.0) 12/20/23 05:54 MCHC 35.0 g/dL (33.0-35.0) 12/20/23 05:54 RDW 14.6 % (11.6-16.5) 12/20/23 05:54 Plt Count 147 X10^3/uL (150.0-450.0) L 12/20/23 05:54 Plt Count Comment Adequate (ADEQUATE) 12/18/23 14:12 MPV 7.2 fL (7.4-11.0) L 12/20/23 05:54 Neut % (Auto) 84.2 % (42.0-75.0) H 12/20/23 05:54 Lymph % (Auto) 7.2 % (21.0-51.0) L 12/20/23 05:54 [place] % (Auto) 5.7 % (0.0-13.0) 12/20/23 05:54 Eos % (Auto) 2.6 % (0.9-2.9) 12/20/23 05:54 Baso % (Auto) 0.3 % (0.2-1.0) 12/20/23 05:54 Neut # (Auto) 12.5 x10^3/uL (2.2-4.8) H 12/20/23 05:54 Lymph # (Auto) 1.1 X10^3/uL (1.3-2.9) L 12/20/23 05:54 [place] # (Auto) 0.9 x10^3/uL (0.3-0.8) H 12/20/23 05:54 Eos # (Auto) 0.4 x10^3/uL (0.0-0.2) H 12/20/23 05:54 Baso # (Auto) 0.0 X10^3/uL (0.0-0.1) 12/20/23 05:54 Absolute Nucleated RBC 0.1 /100WBC 12/20/23 05:54 Total Counted 100 12/18/23 14:12 Neutrophils % (Manual) 77 % (39-76) H 12/18/23 14:12 Band Neutrophils % 3 % (0-10) 12/18/23 14:12 Lymphocytes % (Manual) 14 % (13-43) 12/18/23 14:12 Monocytes % (Manual) 6 % (4-9) 12/18/23 14:12 Plt Morphology Comment Normal (NORMAL) 12/18/23 14:12 RBC Morphology Normal (NORMAL) 12/18/23 14:12 Sodium 134 mmol/L (136-145) L 12/20/23 05:54 Corrected Sodium 135 mmol/L (136-145) L 12/20/23 05:54 Potassium 3.0 mmol/L (3.5-5.1) L 12/20/23 05:54 Chloride 98 mmol/L (98-107) 12/20/23 05:54 Carbon Dioxide 28.3 mmol/L (21-32) 12/20/23 05:54 BUN 9 mg/dL (7-18) 12/20/23 05:54 Creatinine 1.21 mg/dL (0.70-1.30) 12/20/23 05:54 Est GFR (MDRD) Af Amer > 60 (>60) 12/20/23 05:54 Est GFR (MDRD) Non-Af > 60 (>60) 12/20/23 05:54 Glucose 121 mg/dL (65-99) H 12/20/23 05:54 Calcium 8.0 mg/dL (8.5-10.1) L 12/20/23 05:54 Corrected Calcium 9.4 mg/dL (8.5-10.1) 12/20/23 05:54 Magnesium 1.9 mg/dL (2.0-2.9) L 12/20/23 05:54 Total Bilirubin 1.00 mg/dL (0.2-1.0) 12/20/23 05:54 AST 16 Units/L (15-37) 12/20/23 05:54 ALT 15 Units/L (12-78) 12/20/23 05:54 Alkaline Phosphatase 51 Units/L (46-116) 12/20/23 05:54 Creatine Kinase 116 Units/L (39-308) 12/18/23 14:12 Total Protein 5.9 g/dL (6.4-8.2) L 12/20/23 05:54 Albumin 2.3 g/dL (3.4-5.0) L 12/20/23 05:54 Globulin 3.6 g/dL (2.5-4.5) 12/20/23 05:54 Albumin/Globulin Ratio 0.6 Ratio (1.1-2.1) L 12/20/23 05:54 Lipase 30 Units/L (16-77) 12/18/23 14:12 Specimen Type Clean catch urine 12/18/23 14:16 Urine Color Dark yellow (YELLOW) 12/18/23 14:16 Urine Appearance Clear (CLEAR) 12/18/23 14:16 Urine pH 6.5 (5.0 - 8.0) 12/18/23 14:16 Ur Specific [place] 1.020 (1.000-1.030) 12/18/23 14:16 Urine Protein 2+ (NEGATIVE) 12/18/23 14:16 Urine Glucose (UA) Negative (NEGATIVE) 12/18/23 14:16 Urine Ketones 1+ (NEGATIVE) 12/18/23 14:16 Urine Blood Negative (NEGATIVE) 12/18/23 14:16 Urine Nitrite Negative (NEGATIVE) 12/18/23 14:16 Urine Bilirubin 1+ (NEGATIVE) 12/18/23 14:16 Urine Urobilinogen 2+ (NORMAL) 12/18/23 14:16 Ur Leukocyte Esterase 1+ (NEGATIVE) 12/18/23 14:16 Urine RBC None seen /HPF (0-3) 12/18/23 14:16 Urine WBC 3-5 /HPF (0-5) 12/18/23 14:16 Ur Squamous Epith Cells Few /HPF (NEGATIVE) 12/18/23 14:16 Urine Bacteria Trace /HPF (NEGATIVE) 12/18/23 14:16 Hyaline Casts Few /LPF (NEGATIVE) 12/18/23 14:16 Urine Mucus Many /HPF (NEGATIVE) 12/18/23 14:16 Ur Culture Indicated? No/not indicated 12/18/23 14:16 Assessment and Plan 1: Acute ruptured appendicitis status post laparoscopic appendectomy. Same postoperative care, IV fluid and IV antibiotics. Out of bed, incentive spirometer, full liquid diet. DVT prophylaxis. Problem Patient Problems: Patient Problems Acute appendicitis (Acute) K35.80
[2023-12-20] MEDS: K-DUR TAB 20 MEQ PO SCH (08:09)
[2023-12-20] MEDS: MAG-OX TAB PO SCH (08:09)
[2023-12-20] MEDS: BENADRYL CAP/TAB 25 MG PO PRN (12:23)
[2023-12-20] MEDS: D5 1/2 NS + KCL 20 MEQ/L 1,000 ML IV SCH (12:23)
[2023-12-21 05:07] LABS: BASOPHILS % (AUTO) 0.3 % (0.2-1.0); EOSINOPHILS # (AUTO) 0.6 x10^3/uL (0.0-0.2); EOSINOPHILS % (AUTO) 4.6 % (0.9-2.9); HEMATOCRIT 43.8 % (42.0-54.0); HEMOGLOBIN 15.2 g/dL (13.5-18.0); LYMPHOCYTES # (AUTO) 1.4 X10^3/uL (1.3-2.9); LYMPHOCYTES % (AUTO) 11.2 % (21.0-51.0); MEAN CORPUSCULAR HGB CONC 34.7 g/dL (33.0-35.0); MEAN CORPUSCULAR VOLUME 86.5 fL (80.0-100.0); MEAN PLATELET VOLUME 7.5 fL (7.4-11.0); MONOCYTES # (AUTO) 0.8 x10^3/uL (0.3-0.8); MONOCYTES % (AUTO) 6.3 % (0.0-13.0); NEUTROPHILS # (AUTO) 9.9 x10^3/uL (2.2-4.8); NEUTROPHILS % (AUTO) 77.6 % (42.0-75.0); PLATELET COUNT 186 X10^3/uL (150.0-450.0); RED BLOOD COUNT 5.07 X10^6/uL (4.7-6.0); RED CELL DISTRIBUTION WIDTH 14.2 % (11.6-16.5); WHITE BLOOD COUNT 12.7 X10^3/uL (3.6-10.0)
[2023-12-21 05:25] LABS: ALANINE AMINOTRANSFERASE 14 Units/L (12-78); ALBUMIN 2.4 g/dL (3.4-5.0); ALKALINE PHOSPHATASE 51 Units/L (46-116); ASPARTATE AMINO TRANSFERASE 16 Units/L (15-37); BLOOD UREA NITROGEN 7 mg/dL (7-18); CALCIUM 8.2 mg/dL (8.5-10.1); CARBON DIOXIDE 29.6 mmol/L (21-32); CHLORIDE 98 mmol/L (98-107); COR CA(FOR HYPOALB) 9.5 mg/dL (8.5-10.1); COR NA(FOR HYPERGLY) 135 mmol/L (136-145); CREATININE 1.07 mg/dL (0.70-1.30); GLUCOSE 131 mg/dL (65-99); POTASSIUM 3.1 mmol/L (3.5-5.1); SODIUM 134 mmol/L (136-145); TOTAL PROTEIN 6.2 g/dL (6.4-8.2); eGFR NON BLACK RACES > 60 (>60)
[2023-12-21] MEDS ORDERED: CONSULT PHARMACY - POTASSIUM & MAGNESIUM XX SCH (07:00)
--- NOTE | 2023-12-21 07:43 | DR.PROGNOT ---
HOSPITAL PROGRESS NOTE Progress Note for Day of: Progress Note Date: 12/21/23 Chief Complaint Chief Complaint: Status post laparoscopic appendectomy day 3. For acute gangrenous and ruptured appendicitis. feeling better today ,Complaining of lower abdominal pain, no nausea ,no vomiting ,passing flatus but no BM yet . moderate drainage in MICHAEL Good urine output. White count 12.3 with shift to the left. Stable vital signs and using the incentive spirometer. temp was 99.7 last night, Abdomen is soft with hypoactive bowel sounds.. moderate erythema around the LLQ incision Past Medical Family Social History Allergies: Allergies hydrocodone Allergy (Verified 12/08/23 18:38) Review Of Systems ROS: No change since H&P Vital Signs Vital Signs: Vital Signs Temperature 98.1 F Pulse Rate [Left] 84 Respiratory Rate 18 Blood Pressure [Left Arm] 138/87 O2 Sat by Pulse Oximetry 98 Physical Exam Oriented: Normal Eyes: Normal Ear: Normal Nose: Normal Throat: Normal Respiratory: Normal Cardiovascular: Normal GI:Auscultation: Decreased GI:Palpation: Normal GI: Tenderness: Moderate Mood Description: Calm Speech Pattern: Clear and Appropriate Laboratory and Diagnostics 12/21/23 04:45 12/21/23 04:45 Labs: Laboratory WBC 12.7 X10^3/uL (3.6-10.0) H 12/21/23 04:45 RBC 5.07 X10^6/uL (4.7-6.0) 12/21/23 04:45 Hgb 15.2 g/dL (13.5-18.0) 12/21/23 04:45 Hct 43.8 % (42.0-54.0) 12/21/23 04:45 MCV 86.5 fL (80.0-100.0) 12/21/23 04:45 MCH 30.0 pg (27.0-34.0) 12/21/23 04:45 MCHC 34.7 g/dL (33.0-35.0) 12/21/23 04:45 RDW 14.2 % (11.6-16.5) 12/21/23 04:45 Plt Count 186 X10^3/uL (150.0-450.0) 12/21/23 04:45 Plt Count Comment Adequate (ADEQUATE) 12/18/23 14:12 MPV 7.5 fL (7.4-11.0) 12/21/23 04:45 Neut % (Auto) 77.6 % (42.0-75.0) H 12/21/23 04:45 Lymph % (Auto) 11.2 % (21.0-51.0) L 12/21/23 04:45 [place] % (Auto) 6.3 % (0.0-13.0) 12/21/23 04:45 Eos % (Auto) 4.6 % (0.9-2.9) H 12/21/23 04:45 Baso % (Auto) 0.3 % (0.2-1.0) 12/21/23 04:45 Neut # (Auto) 9.9 x10^3/uL (2.2-4.8) H 12/21/23 04:45 Lymph # (Auto) 1.4 X10^3/uL (1.3-2.9) 12/21/23 04:45 [place] # (Auto) 0.8 x10^3/uL (0.3-0.8) 12/21/23 04:45 Eos # (Auto) 0.6 x10^3/uL (0.0-0.2) H 12/21/23 04:45 Baso # (Auto) 0.0 X10^3/uL (0.0-0.1) 12/21/23 04:45 Absolute Nucleated RBC 0.0 /100WBC 12/21/23 04:45 Total Counted 100 12/18/23 14:12 Neutrophils % (Manual) 77 % (39-76) H 12/18/23 14:12 Band Neutrophils % 3 % (0-10) 12/18/23 14:12 Lymphocytes % (Manual) 14 % (13-43) 12/18/23 14:12 Monocytes % (Manual) 6 % (4-9) 12/18/23 14:12 Plt Morphology Comment Normal (NORMAL) 12/18/23 14:12 RBC Morphology Normal (NORMAL) 12/18/23 14:12 Sodium 134 mmol/L (136-145) L 12/21/23 04:45 Corrected Sodium 135 mmol/L (136-145) L 12/21/23 04:45 Potassium 3.1 mmol/L (3.5-5.1) L 12/21/23 04:45 Chloride 98 mmol/L (98-107) 12/21/23 04:45 Carbon Dioxide 29.6 mmol/L (21-32) 12/21/23 04:45 BUN 7 mg/dL (7-18) 12/21/23 04:45 Creatinine 1.07 mg/dL (0.70-1.30) 12/21/23 04:45 Est GFR (MDRD) Af Amer > 60 (>60) 12/21/23 04:45 Est GFR (MDRD) Non-Af > 60 (>60) 12/21/23 04:45 Glucose 131 mg/dL (65-99) H 12/21/23 04:45 Calcium 8.2 mg/dL (8.5-10.1) L 12/21/23 04:45 Corrected Calcium 9.5 mg/dL (8.5-10.1) 12/21/23 04:45 Magnesium 1.9 mg/dL (2.0-2.9) L 12/21/23 04:45 Total Bilirubin 0.70 mg/dL (0.2-1.0) 12/21/23 04:45 AST 16 Units/L (15-37) 12/21/23 04:45 ALT 14 Units/L (12-78) 12/21/23 04:45 Alkaline Phosphatase 51 Units/L (46-116) 12/21/23 04:45 Creatine Kinase 116 Units/L (39-308) 12/18/23 14:12 Total Protein 6.2 g/dL (6.4-8.2) L 12/21/23 04:45 Albumin 2.4 g/dL (3.4-5.0) L 12/21/23 04:45 Globulin 3.8 g/dL (2.5-4.5) 12/21/23 04:45 Albumin/Globulin Ratio 0.6 Ratio (1.1-2.1) L 12/21/23 04:45 Lipase 30 Units/L (16-77) 12/18/23 14:12 Specimen Type Clean catch urine 12/18/23 14:16 Urine Color Dark yellow (YELLOW) 12/18/23 14:16 Urine Appearance Clear (CLEAR) 12/18/23 14:16 Urine pH 6.5 (5.0 - 8.0) 12/18/23 14:16 Ur Specific [place] 1.020 (1.000-1.030) 12/18/23 14:16 Urine Protein 2+ (NEGATIVE) 12/18/23 14:16 Urine Glucose (UA) Negative (NEGATIVE) 12/18/23 14:16 Urine Ketones 1+ (NEGATIVE) 12/18/23 14:16 Urine Blood Negative (NEGATIVE) 12/18/23 14:16 Urine Nitrite Negative (NEGATIVE) 12/18/23 14:16 Urine Bilirubin 1+ (NEGATIVE) 12/18/23 14:16 Urine Urobilinogen 2+ (NORMAL) 12/18/23 14:16 Ur Leukocyte Esterase 1+ (NEGATIVE) 12/18/23 14:16 Urine RBC None seen /HPF (0-3) 12/18/23 14:16 Urine WBC 3-5 /HPF (0-5) 12/18/23 14:16 Ur Squamous Epith Cells Few /HPF (NEGATIVE) 12/18/23 14:16 Urine Bacteria Trace /HPF (NEGATIVE) 12/18/23 14:16 Hyaline Casts Few /LPF (NEGATIVE) 12/18/23 14:16 Urine Mucus Many /HPF (NEGATIVE) 12/18/23 14:16 Ur Culture Indicated? No/not indicated 12/18/23 14:16 Assessment and Plan 1: Acute ruptured appendicitis status post laparoscopic appendectomy. Same postoperative care, IV fluid and IV antibiotics. Out of bed, incentive spirometer, soft diet. DVT prophylaxis. Problem Patient Problems: Patient Problems Acute appendicitis (Acute) K35.80
[2023-12-21] MEDS: MAG-OX TAB PO SCH (08:36)
[2023-12-21] MEDS: K-DUR TAB 20 MEQ PO SCH (08:37)
[2023-12-21] MEDS: ZOFRAN INJ 4 MG VIAL IVP PRN (08:43)
[2023-12-22 06:00] LABS: BASOPHILS # (AUTO) 0.1 X10^3/uL (0.0-0.1); BASOPHILS % (AUTO) 0.6 % (0.2-1.0); EOSINOPHILS # (AUTO) 0.6 x10^3/uL (0.0-0.2); EOSINOPHILS % (AUTO) 4.9 % (0.9-2.9); HEMATOCRIT 43.1 % (42.0-54.0); HEMOGLOBIN 14.8 g/dL (13.5-18.0); LYMPHOCYTES # (AUTO) 1.3 X10^3/uL (1.3-2.9); LYMPHOCYTES % (AUTO) 10.9 % (21.0-51.0); MEAN CORPUSCULAR HEMOGLOBIN 29.9 pg (27.0-34.0); MEAN CORPUSCULAR HGB CONC 34.4 g/dL (33.0-35.0); MEAN CORPUSCULAR VOLUME 86.9 fL (80.0-100.0); MEAN PLATELET VOLUME 7.1 fL (7.4-11.0); MONOCYTES # (AUTO) 0.7 x10^3/uL (0.3-0.8); MONOCYTES % (AUTO) 6.4 % (0.0-13.0); NEUTROPHILS # (AUTO) 8.9 x10^3/uL (2.2-4.8); NEUTROPHILS % (AUTO) 77.2 % (42.0-75.0); PLATELET COUNT 210 X10^3/uL (150.0-450.0); RED BLOOD COUNT 4.96 X10^6/uL (4.7-6.0); RED CELL DISTRIBUTION WIDTH 14.4 % (11.6-16.5); WHITE BLOOD COUNT 11.5 X10^3/uL (3.6-10.0)
[2023-12-22 06:13] LABS: ALANINE AMINOTRANSFERASE 14 Units/L (12-78); ALBUMIN 2.4 g/dL (3.4-5.0); ALKALINE PHOSPHATASE 42 Units/L (46-116); ASPARTATE AMINO TRANSFERASE 20 Units/L (15-37); BLOOD UREA NITROGEN 9 mg/dL (7-18); CALCIUM 8.5 mg/dL (8.5-10.1); CARBON DIOXIDE 30.8 mmol/L (21-32); CHLORIDE 99 mmol/L (98-107); COR CA(FOR HYPOALB) 9.8 mg/dL (8.5-10.1); COR NA(FOR HYPERGLY) 134 mmol/L (136-145); CREATININE 1.06 mg/dL (0.70-1.30); GLUCOSE 117 mg/dL (65-99); MAGNESIUM 1.8 mg/dL (2.0-2.9); POTASSIUM 3.5 mmol/L (3.5-5.1); SODIUM 134 mmol/L (136-145); TOTAL PROTEIN 6.1 g/dL (6.4-8.2); eGFR NON BLACK RACES > 60 (>60)
[2023-12-22] MEDS ORDERED: CONSULT PHARMACY - POTASSIUM & MAGNESIUM XX SCH (07:00)
[2023-12-22 07:43] VITALS: BP 157/93; PULSE 82; RESP 20; TEMP 98.4; O2SAT 95
[2023-12-22] MEDS: MAG-OX TAB PO SCH (09:54)
[2023-12-22] MEDS: K-DUR TAB 20 MEQ PO SCH (09:54)
== END 2023-12-22 10:05 | disposition home or self-care (01) | DRG 399 ==
LOC: MED/SURG 12:47 → ER 12:47 → OBSVTOIN 19:48 → MED/SURG 20:04
PROVIDERS: ADMIT Surgery; ATTEND Surgery
PROC: APPYLAP (ICD-10-PCS; 2023-12-18 18:45)